=== PATIENT | female | born 1985 | race Caucasian/White ===

== ENCOUNTER 2018-11-05 23:26 | Emergency (ER) | payer MEDICAID, OTHER ==
[~2018-11-05] VITALS: Ht 160 cm; Wt 52.2 kg
--- OUTSIDE RECORDS SUMMARY | 2018-11-05 23:36 | XMS REPORT ---
Author Author MAEVE LOPEZ Organization [facility] Address [address] [place] [address] Care Team Providers Care Truck Service Manager Name Role Phone MAEVE LOPEZ Unavailable PROBLEMS Type Condition ICD9-CM Code [id number] Code Onset Dates Condition Status SNOMED Code Problem Anxiety F41.9 Active 21662579 Problem Panic disorder F41.0 Active 438617548 Problem Postoperative hypothyroidism E89.0 Active 54488485 Problem Migraine headache without aura G43.009 Active 78449828 ALLERGIES No Information ENCOUNTERS Encounter Location Date Diagnosis [facility] [address] [id number] [place] [address] Sep [facility] [address] [id number] [place] [address] Aug Anxiety F41.9 and Postoperative hypothyroidism E89.0 [facility] [address] [id number] [place] [address] Aug [facility] [address] [id number] [place] [address] Jul Anxiety F41.9 ; Postoperative hypothyroidism E89.0 and Back pain, lumbosacral M54.5 [facility] [address] [id number] [address] Jan, Postoperative hypothyroidism E89.0 [facility] [address] [facility] [id number] [place] [id number] Jan, Postoperative hypothyroidism E89.0 [facility] [place] [address] [id number] [id number] Dec, Postoperative hypothyroidism E89.0 [facility] [address] [facility] [id number][place] [address] Dec, Postoperative hypothyroidism E89.0 [facility] [address] [id number][place] [id number] Nov, Postoperative hypothyroidism E89.0 [facility] [place] [address] [id number] [place] [id number] Nov, Postoperative hypothyroidism E89.0 [facility] [place] [address] [id number] [place] [id number] Nov, Postoperative hypothyroidism E89.0 and Panic disorder F41.0 [facility] [place] [address] [id number] [place] [address] Sep, Postoperative hypothyroidism E89.0 [facility] [place] [address] [id number] [place] [id number] Aug, [facility] [id number], [place] [address] Jul, [facility] [id number][place] [id number] Jul, [facility] [place] [id number] [place] [address] Jun, [facility] [address] [id number][place] [address] May, [facility] [id number][place] [address] Apr, [facility] [address] [id number], [place] [id number] Apr, [facility] [place] [address] [id number] [place] [id number] Apr, Postoperative hypothyroidism E89.0 [facility] [place] [address] [id number] [place] [address] Apr, Panic disorder F41.0 [facility] [address] [id number], [place] [id number] Apr, Postoperative hypothyroidism E89.0 [facility] [place] [address] [id number] [place] [address] March, Well woman exam Z01.419 ; Vaginal itching L29.8 and Nipple discharge N64.52 [facility] [address] [facility] [id number] [place] [id number] Dec, [facility] [address] [facility] [id number] [place] [phone] Dec, Panic disorder F41.0 ; Postoperative hypothyroidism E89.0 ; Migraine headache without aura G43.009 and Encounter for initial prescription of contraceptive pills Z30.011 [facility] [address] [facility] [id number] [place] [phone] Nov, Panic disorder F41.0 ; Postoperative hypothyroidism E89.0 ; Migraine headache without aura G43.009 and Encounter for initial prescription of contraceptive pills Z30.011 IMMUNIZATIONS No Known Immunizations SOCIAL HISTORY Never Assessed REASON FOR VISIT letter for lab results PLAN OF CARE VITAL SIGNS MEDICATIONS Medication Instructions Dosage Frequency Start Date End Date Duration Status Levothyroxine Sodium 50 mcg Orally Once a day 1 tablet on an empty stomach in the morning 24h Sep, 30 day(s) Active RESULTS No Results PROCEDURES No Known procedures INSTRUCTIONS MEDICATIONS ADMINISTERED No Known Medications MEDICAL (GENERAL) HISTORY Type Description Date Medical History hyperthyroidism Medical History kidney stones Medical History anxiety Medical History migraine headaches Medical History ovarian cyst Surgical History tonsillectomy Surgical History section Surgical History thyroidectomy Hospitalization History Hospitalization for surgery only
--- OUTSIDE RECORDS SUMMARY | 2018-11-05 23:36 | XMS REPORT ---
Author Author MAEVE LOPEZ Organization [facility] Address [address] [place] [address] Care Team Providers Care Demolition Worker Name Role Phone MAEVE LOPEZ Unavailable PROBLEMS ALLERGIES No Known Allergies ENCOUNTERS IMMUNIZATIONS No Known Immunizations SOCIAL HISTORY No smoking Hx information available REASON FOR VISIT PLAN OF CARE VITAL SIGNS MEDICATIONS RESULTS No Results PROCEDURES INSTRUCTIONS MEDICATIONS ADMINISTERED No Known Medications MEDICAL (GENERAL) HISTORY
--- OUTSIDE RECORDS SUMMARY | 2018-11-05 23:36 | XMS REPORT ---
Author Author NANCY Barrientos Organization [facility] Address [address] [place] [address] Care Team Providers Care Plastics Design Engineer Name Role Phone NANCY Barrientos Unavailable PROBLEMS Type Condition ICD9-CM Code [id number] Code Onset Dates Condition Status SNOMED Code Problem Panic disorder F41.0 Active 604134521 Problem Postoperative hypothyroidism E89.0 Active 86255235 Problem Migraine headache without aura G43.009 Active 03231495 ALLERGIES No Information SOCIAL HISTORY Never Assessed PLAN OF CARE VITAL SIGNS MEDICATIONS Unknown Medications RESULTS Name Result Date Reference Range TSH 2016-12-16 TSH 0.106 0.450-4.500 PROCEDURES Procedure Date Ordered Result Body Site LAB NOT BILLED BY [facility] Dec 13, 2016 IMMUNIZATIONS No Known Immunizations MEDICAL (GENERAL) HISTORY Type Description Date Medical History hyperthyroidism Medical History kidney stones Medical History anxiety Medical History migraine headaches Medical History ovarian cyst Surgical History tonsillectomy Surgical History section Surgical History thyroidectomy Hospitalization History Hospitalization for surgery only
--- OUTSIDE RECORDS SUMMARY | 2018-11-05 23:36 | XMS REPORT ---
Author Author BRENNA NAVAS Organization [employer] Address Unknown Phone Unavailable Care Team Providers Care Outside Food Server Name Role Phone BRENNA NAVAS CP Unavailable Allergies No Known Allergies Problems Problem Type Condition Code Onset Dates Condition Status Problem Migraine headache without aura G43.009 Active Problem Panic disorder F41.0 Active Problem Postoperative hypothyroidism E89.0 Active Medications Medication Code System Code Instructions Start Date End Date Status Dosage HydrOXYzine HCl [facility] [address]-59 25 MG Orally once a day May 14, 2016 1 tablet as needed for panic attacks Effexor XR [facility] [address]-91 75 MG Orally Once a day May 14, 2016 1 capsule with food Results No Known Results Summary Purpose [employer] Submission
--- OUTSIDE RECORDS SUMMARY | 2018-11-05 23:36 | XMS REPORT ---
Author Author MAEVE LOPEZ Organization [facility] Address [address] [place] [address] Care Team Providers Care Software Developer Name Role Phone MAEVE LOPEZ Unavailable PROBLEMS Type Condition ICD9-CM Code TTX91-TL Code Onset Dates Condition Status SNOMED Code Problem Anxiety F41.9 Active 79951313 Problem Panic disorder F41.0 Active 959692367 Problem Postoperative hypothyroidism E89.0 Active 68554845 Problem Migraine headache without aura G43.009 Active 68465251 ALLERGIES No Known Allergies ENCOUNTERS Encounter Location Date Diagnosis [facility] [address] [id number] [place] [address] Aug Anxiety F41.9 and Postoperative hypothyroidism E89.0 [facility] [address] [id number] [place] [address] Aug [facility] [address] [id number] [place] [address] Jul Anxiety F41.9 ; Postoperative hypothyroidism E89.0 and Back pain, lumbosacral M54.5 [facility] [address] [facility] [id number] [place] [address] Jan, Postoperative hypothyroidism E89.[address] [facility] [address] [facility] [id number] [place] [address] Jan, Postoperative hypothyroidism E89.0 [facility] [place] [address] [facility] [id number][place] [id number] Dec, Postoperative hypothyroidism E89.[address] [facility] [address] [id number] [place] [address] Dec, Postoperative hypothyroidism E89.[address] [facility] [address] [id number] [place] [address] Nov, Postoperative hypothyroidism E89.0 [facility] [place] [address] [id number] [place] [address] Nov, Postoperative hypothyroidism E89.0 [facility] [place] [id number] [place] [id number] Nov, Postoperative hypothyroidism E89.0 and Panic disorder F41.0 [facility] [place] [id number] [place] [id number] Sep, Postoperative hypothyroidism E89.0 [facility] [place] [address] [id number] [place] [id number] Aug, [facility] [id number] [place] [address] Jul, [facility] [id number] [place] [id number] Jul, [facility] [place] [id number] [facility] [id number] Jun, [facility] [address] [id number] [place] [address] May, [facility] [id number] [place] [id number] Apr, [facility] [id number] [place] [address] Apr, [facility] [place] [id number] [place] [id number] Apr, Postoperative hypothyroidism E89.0 [facility] [place] [address] [id number] [facility] [address] Apr, Panic disorder F41.0 [facility] [address] [id number] [place] [address] Apr, Postoperative hypothyroidism E89.0 [facility] [place] [id number] [facility] [id number] March, Well woman exam Z01.419 ; Vaginal itching L29.8 and Nipple discharge N64.52 [facility] [id number] [place] [address] Dec, [facility] [place] [address] [facility] [id number] [place] [phone] Dec, Panic disorder F41.0 ; Postoperative hypothyroidism E89.0 ; Migraine headache without aura G43.009 and Encounter for initial prescription of contraceptive pills Z30.011 [facility] [place] [address] [facility] [address] [id number] [place] [address] Nov, Panic disorder F41.0 ; Postoperative hypothyroidism E89.0 ; Migraine headache without aura G43.009 and Encounter for initial prescription of contraceptive pills Z30.011 IMMUNIZATIONS No Known Immunizations SOCIAL HISTORY Never Assessed REASON FOR VISIT Anxiety-4 week follow up, med is not working and she is asking for xanax, wants to change to levothyroxine as it is hard to keep nature-throid in stock at pharmacy---[facility] PLAN OF CARE Activity Details Follow Up 4 Weeks Reason:Anxiety f/u VITAL SIGNS Height 63 in 2018-09-14 Weight 108.3 lbs 2018-09-14 Temperature 98.4 degrees Fahrenheit 2018-09-14 Heart Rate 104 bpm 2018-09-14 Respiratory Rate 18 2018-09-14 Oximetry 98 % 2018-09-14 BMI 19.18 kg/m2 2018-09-14 Blood pressure systolic 108 mmHg 2018-09-14 Blood pressure diastolic 64 mmHg 2018-09-14 MEDICATIONS Medication Instructions Dosage Frequency Start Date End Date Duration Status BusPIRone HCl 5 mg Orally Three times a day 1 tablet 8h Aug, 14 days Active Venlafaxine HCl 75 MG Orally Once a day 1 tablet with food 24h Aug, 30 day(s) Active RESULTS No Results PROCEDURES Procedure Date Ordered Result Body Site ASSAY THYROID STIM HORMONE Sep 14, 2018 COMPLETE CBC W/AUTO DIFF WBC Sep 14, 2018 COMPREHEN METABOLIC PANEL Sep 14, 2018 VENIPUNCT, ROUTINE* Sep 14, 2018 LIPID PANEL Sep 14, 2018 INSTRUCTIONS MEDICATIONS ADMINISTERED No Known Medications MEDICAL (GENERAL) HISTORY Type Description Date Medical History hyperthyroidism Medical History kidney stones Medical History anxiety Medical History migraine headaches Medical History ovarian cyst Surgical History tonsillectomy Surgical History section Surgical History thyroidectomy Hospitalization History Hospitalization for surgery only
--- OUTSIDE RECORDS SUMMARY | 2018-11-05 23:36 | XMS REPORT ---
Author Author [facility]AS [facility] [place] Address [address] [place] [address] Care Team Providers Care Fisher Mussel Name Role Phone ELOISE BRENNA Unavailable PROBLEMS Type Condition ICD9-CM Code [id number] Code Onset Dates Condition Status SNOMED Code Problem Postoperative hypothyroidism E89.0 Active 60643805 Problem Migraine headache without aura G43.009 Active 50483030 Problem Panic disorder F41.0 Active 093454309 ALLERGIES Unknown Allergies SOCIAL HISTORY No smoking Hx information available PLAN OF CARE VITAL SIGNS MEDICATIONS Unknown Medications RESULTS No Results PROCEDURES No Known procedures IMMUNIZATIONS No Known Immunizations
--- OUTSIDE RECORDS SUMMARY | 2018-11-05 23:36 | XMS REPORT ---
Author Author [facility]AS [facility] Address [address] [place] [address] Care Team Providers Care Cocoa Bean Roaster Name Role Phone ELOISE BRENNA Unavailable PROBLEMS Type Condition ICD9-CM Code WTC70-CW Code Onset Dates Condition Status SNOMED Code Problem Panic disorder F41.0 Active 027838221 Problem Postoperative hypothyroidism E89.0 Active 64539503 Problem Migraine headache without aura G43.009 Active 58264342 ALLERGIES Unknown Allergies SOCIAL HISTORY No smoking Hx information available PLAN OF CARE VITAL SIGNS MEDICATIONS Unknown Medications RESULTS No Results PROCEDURES No Known procedures IMMUNIZATIONS No Known Immunizations
--- OUTSIDE RECORDS SUMMARY | 2018-11-05 23:36 | XMS REPORT ---
Author Author BRENNA NAVAS Organization [employer] Address Unknown Phone Unavailable Care Team Providers Care Supervisor Inspecting Name Role Phone BRENNA NAVAS CP Unavailable Allergies No Known Allergies Problems Problem Type Condition Code Onset Dates Condition Status Problem Migraine headache without aura G43.009 Active Problem Panic disorder F41.0 Active Problem Postoperative hypothyroidism E89.0 Active Assessment Postoperative hypothyroidism E89.0 Active Medications No Known Medications Procedures Procedure Coding System Code Date VENIPUNCT, ROUTINE* CPT-4 83501 Sep 30, 2016 LAB NOT BILLED BY [facility] CPT-4 NOBLL Sep 30, 2016 Results Name Result Date Reference Range Unit Abnormality Flag ROUTINE VENIPUNCTURE Summary Purpose [employer] Submission
--- OUTSIDE RECORDS SUMMARY | 2018-11-05 23:36 | XMS REPORT ---
Author Author BRENNA NAVAS Organization [facility] Address [address] [place] [address] Care Team Providers Care Cement Sprayer Helper Name Role Phone BRENNA NAVAS Unavailable PROBLEMS Type Condition ICD9-CM Code [id number] Code Onset Dates Condition Status SNOMED Code Problem Panic disorder F41.0 Active 001357411 Problem Postoperative hypothyroidism E89.0 Active 66561104 Problem Migraine headache without aura G43.009 Active 49307612 ALLERGIES No Information SOCIAL HISTORY Never Assessed PLAN OF CARE VITAL SIGNS MEDICATIONS Unknown Medications RESULTS Name Result Date Reference Range TSH W/ FREE T4 2017-01-14 TSH 5.680 0.450-4.500 T4,Free(Direct) 0.93 0.82-1.77 PROCEDURES Procedure Date Ordered Result Body Site LAB NOT BILLED BY [facility] Jan 14, 2017 VENIPUNCT, ROUTINE* Jan 14, 2017 IMMUNIZATIONS No Known Immunizations MEDICAL (GENERAL) HISTORY Type Description Date Medical History hyperthyroidism Medical History kidney stones Medical History anxiety Medical History migraine headaches Medical History ovarian cyst Surgical History tonsillectomy Surgical History section Surgical History thyroidectomy Hospitalization History Hospitalization for surgery only
--- OUTSIDE RECORDS SUMMARY | 2018-11-05 23:36 | XMS REPORT ---
Author Goldy Newby [facility] Address [address] [place], [place] [address] Care Team Providers Care Cloud Engagement Partner Name Role Phone Goldy Delgado PCP Shira Mae PreferredProvider Allergies and Adverse Reactions Name Reaction Notes No known drug allergy Plan of Treatment Planned Activity Comments Planned Date Planned Time Plan/Goal Culture + susceptibility 11/04/2018 12:00 AM Medications Active Name Start Date Estimated Completion Date SIG Comments Bactrim DS 800-160 mg oral tablet take 1 tablet by oral route every 12 hours for 10 days levothyroxine 50 mcg oral tablet take 1 tablet (50 mcg) by oral route once daily tramadol 50 mg oral tablet 11/05/2018 take 1 tablet by oral route 2 times a day Problem List Not available. Vital Signs Date Time BP-Sys(mm[Hg] BP-Fang(mm[Hg]) HR(bpm) RR(rpm) Temp WT HT HC BMI BSA BMI Percentile O2 Sat(%) 11/04/2018 2:51:00 PM 110 mmHg 68 mmHg 106 bpm 20 rpm 99.5 F 115 lbs 64 in 19.7395 kg/m 1.5348 m 100 % Social History Name Description Comments Alcohol Never Tobacco Current every day smoker History of Procedures Not available. Results Summary Not available. History Of Immunizations Not available. History of Past Illness Name Date of Onset Comments Hyperthyroidism Goiter Abscess Nov 04 2018 4:09PM Abscess Nov 04 2018 2:53PM Cellulitis of left upper extremity Nov 04 2018 2:53PM Payers Insurance Name Company Name Plan Name Plan Number Policy Number Policy Group Number Start Date [facility] [id number] N/A [facility] [id number] N/A History of Encounters Visit Date Visit Type Provider 11/04/2018 Procedures Goldy Delgado MD 11/04/2018 Office visit Shira Mae AUTO RADIATOR SPECIALIST
--- OUTSIDE RECORDS SUMMARY | 2018-11-05 23:36 | XMS REPORT ---
Author Author BRENNA NAVAS Organization [employer] Address Unknown Phone Unavailable Care Team Providers Care Motor Vehicle Representative Name Role Phone BRENNA NAVAS CP Unavailable Allergies No Known Allergies Problems Problem Type Condition Code Onset Dates Condition Status Problem Migraine headache without aura G43.009 Active Problem Panic disorder F41.0 Active Problem Postoperative hypothyroidism E89.0 Active Medications No Known Medications Results No Known Results Summary Purpose [employer] Submission
--- OUTSIDE RECORDS SUMMARY | 2018-11-05 23:37 | XMS REPORT ---
Author Author NANCY Barrientos Organization [facility] Address [address] [place] [address] Care Team Providers Care Sr. Director Name Role Phone NANCY Barrientos Unavailable PROBLEMS Type Condition ICD9-CM Code SXM50-PP Code Onset Dates Condition Status SNOMED Code Problem Panic disorder F41.0 Active 329872360 Problem Postoperative hypothyroidism E89.0 Active 50037108 Problem Migraine headache without aura G43.009 Active 27080276 ALLERGIES No Information SOCIAL HISTORY Never Assessed PLAN OF CARE VITAL SIGNS MEDICATIONS Medication Instructions Dosage Frequency Start Date End Date Duration Status Levothyroxine Sodium 75 mcg Orally Once a day 1 tablet on an empty stomach in the morning 24h Jan, 90 days Active RESULTS No Results PROCEDURES No Known procedures IMMUNIZATIONS No Known Immunizations MEDICAL (GENERAL) HISTORY Type Description Date Medical History hyperthyroidism Medical History kidney stones Medical History anxiety Medical History migraine headaches Medical History ovarian cyst Surgical History tonsillectomy Surgical History section Surgical History thyroidectomy Hospitalization History Hospitalization for surgery only
--- OUTSIDE RECORDS SUMMARY | 2018-11-05 23:37 | XMS REPORT | Continuity of Care Document ---
Author Author [facility] Organization [facility] Address [facility] [address] [place] [id number] Phone Unavailable Support Name Relationship Address Phone TRESSA PARRISH MD Caregiver [address] [place] [phone] Unavailable PENDONELL العراقي Next Of Kin [address] [place] [address] Insurance Providers Guarantor Serenity Armando Address [address] [place] [address] Email N Payer [facility] Policy Number [id number] Subscriber's Name Serenity Armando Relationship 18 Self / Same As Patient Advance Directives Directive Response Recorded Date/Time Advance Directives No 09/28/15 5:57pm Living Will No 09/28/15 5:57pm Health Care Proxy No 09/14/17 12:39pm Power of Hr Representative for Health Care No 09/28/15 5:57pm Organ, Tissue, or Eye Donor Yes 09/28/15 5:56pm Do you have a signed organ donor card? No 09/28/15 5:56pm Chief Complaint and Reason for Visit Chief Complaint BRONCHITIS Reason for Visit Acute bronchitis Problems Medical Problem Onset Date Status Abdominal pain Unknown Acute Nausea and vomiting Unknown Acute Past Problems Medical Problem Onset Date Status Acute bronchitis Unknown Acute Medications Current Home Medications Medication Dose Units Route Directions Days Qty Instructions Start Date Cetirizine Hcl (Zyrtec*) 10 Mg Tablet 10 Mg ORAL Daily 30 Tablet Levothyroxine Sodium (Synthroid 125 Mcg Tab*) 125 Mcg Tablet 125 Mcg ORAL Daily Prednisone (Prednisone 20 Mg Tab*) 20 Mg Tablet 40 Mg ORAL Daily 10 Tablet 09/14/17 Past Home Medications Medication Directions Ordered Status Acetaminophen/Hydrocodone Bitart ([place] 5-325 Tab*) 1 Tab Tablet, 1 Each Oral Every 6 Hrs As Needed For Pain 09/28/15 Discontinued Promethazine Hcl (Phenergan*) 25 Mg Tablet, 25 Mg Oral Every 6 Hours as needed for Nausea/Vomiting 09/28/15 Discontinued Social History Social History Problem Response Recorded Date/Time Onset Date Status Smoking Status Current every day smoker 09/14/2017 12:33pm Not Applicable Not Applicable Alcohol Use none 09/14/2017 12:33pm Not Applicable Not Applicable Drug Use none 09/14/2017 12:33pm Not Applicable Not Applicable Smoking Status Start Date Stop Date Current every day smoker Hospital Discharge Instructions No hospital discharge instruction information available. Plan of Care Discharge Date 09/14/17 1:55pm Condition at Discharge Stable Instructions/Education Provided Acute Bronchitis (ED) Prescriptions See Medication Section Additional Instructions/Education Followup with primary care physician for continued symptoms Functional Status Query Response Date Recorded Patient Behavior Appropriate September 14, 2017 12:02pm Allergies, Adverse Reactions, Alerts No known allergies. Immunizations Query Response on File Recorded Date/Time Hx Diphtheria, Pertussis, Tetanus Vaccination Unknown 09/14/17 12:02pm Hx Influenza Vaccination No 09/14/17 12:02pm Hx Pneumococcal Vaccination No 09/14/17 12:02pm Vital Signs Acute Vital Signs Vital Response Date/Time Temperature (Fahrenheit) 98.1 degrees F (97.6 - 99.5) 09/14/2017 1:25pm Temperature Source Temporal Artery 09/14/2017 1:25pm Pulse Rate (adult) 92 bpm (60 - 90) 09/14/2017 1:25pm Respiratory Rate 16 bpm (12 - 24) 09/14/2017 1:25pm Blood Pressure 100/72 mm Hg 09/14/2017 1:25pm O2 Sat by Pulse Oximetry 100 % (90 - 100) 09/14/2017 1:25pm Oxygen Delivery Method Room Air 09/14/2017 1:25pm Height 5 ft 4 in 09/14/2017 12:02pm Weight 110.23 lb 09/14/2017 12:02pm Body Mass Index 18.0 kg/m^2 09/14/2017 12:02pm Results No relevant diagnostic test, laboratory data and/or discharge summary information available. Procedures Procedure Status Date Provider(s) X-ray of chest, PA and lateral views Completed 09/14/17 TRESSA PARRISH MD Encounters Encounter Location Arrival/Admit Date Discharge/Depart Date Attending Provider Departed Emergency Room [place] 09/14/17 11:53am 09/14/17 1:55pm TRESSA PARRISH MD Recent Diagnosis
--- OUTSIDE RECORDS SUMMARY | 2018-11-05 23:37 | XMS REPORT ---
Author Author NANCY Barrientos Organization [facility] Address [address] [place] [address] Care Team Providers Care Poker Prop Player Name Role Phone NANCY Barrientos Unavailable PROBLEMS Type Condition ICD9-CM Code [id number] Code Onset Dates Condition Status SNOMED Code Problem Panic disorder F41.0 Active 640441738 Problem Postoperative hypothyroidism E89.0 Active 27673137 Problem Migraine headache without aura G43.009 Active 99984654 ALLERGIES No Information SOCIAL HISTORY Never Assessed PLAN OF CARE VITAL SIGNS MEDICATIONS Medication Instructions Dosage Frequency Start Date End Date Duration Status Levothyroxine Sodium 75 mcg Orally Once a day 1 tablet on an empty stomach in the morning 24h Jan, 30 day(s) Active RESULTS No Results PROCEDURES No Known procedures IMMUNIZATIONS No Known Immunizations MEDICAL (GENERAL) HISTORY Type Description Date Medical History hyperthyroidism Medical History kidney stones Medical History anxiety Medical History migraine headaches Medical History ovarian cyst Surgical History tonsillectomy Surgical History section Surgical History thyroidectomy Hospitalization History Hospitalization for surgery only
--- OUTSIDE RECORDS SUMMARY | 2018-11-05 23:37 | XMS REPORT ---
Author Author BRENNA NAVAS Organization [employer] Address Unknown Phone Unavailable Care Team Providers Care Screw Machine Operator Name Role Phone BRENNA NAVAS CP Unavailable Allergies No Known Allergies Problems Problem Type Condition Code Onset Dates Condition Status Problem Migraine headache without aura G43.009 Active Problem Panic disorder F41.0 Active Problem Postoperative hypothyroidism E89.0 Active Medications Medication Code System Code Instructions Start Date End Date Status Dosage Levothyroxine Sodium [facility] [id number] 75 MCG Orally Once a day May 20, 2016 1 tablet Results No Known Results Summary Purpose [employer] Submission
--- OUTSIDE RECORDS SUMMARY | 2018-11-05 23:37 | XMS REPORT ---
Author Author NANCY MUNOZ Organization [facility] Address [address] [place] [address] Care Team Providers Care Observer Electrical Prospecting Name Role Phone NANCY MUNOZ Unavailable PROBLEMS Type Condition ICD9-CM Code DSR29-[id number] Code Onset Dates Condition Status SNOMED Code Problem Panic disorder F41.0 Active 955950420 Problem Postoperative hypothyroidism E89.0 Active 77118094 Problem Migraine headache without aura G43.009 Active 61536302 ALLERGIES Substance Reaction Event Type Date Status N.K.D.A. Unknown Non Drug Allergy Nov, Unknown SOCIAL HISTORY No smoking Hx information available PLAN OF CARE Activity Details Follow Up 3 Months- with Mirella. Reason: VITAL SIGNS Height 63 in 2016-12-13 Weight 112 lbs 2016-12-13 Temperature 98.3 degrees Fahrenheit 2016-12-13 Respiratory Rate 18 2016-12-13 BMI 19.84 kg/m2 2016-12-13 Blood pressure systolic 102 mmHg 2016-12-13 Blood pressure diastolic 62 mmHg 2016-12-13 MEDICATIONS Medication Instructions Dosage Frequency Start Date End Date Duration Status HydrOXYzine HCl 25 MG Orally once a day 1 tablet as needed for panic attacks 24h Apr, 30 days Active Effexor XR 75 MG Orally Once a day 1 capsule with food 24h Apr, 30 days Active Levothyroxine Sodium 75 MCG Orally Once a day 1 tablet 24h Apr, 30 day(s) Active Levothyroxine Sodium 50 MCG Orally Once a day 1 tablet on an empty stomach in the morning 24h Nov, 30 day(s) Active RESULTS Name Result Date Reference Range TSH 2016-12-16 TSH PROCEDURES Procedure Date Ordered Related Diagnosis Body Site LAB NOT BILLED BY [facility] Dec 13, 2016 Office Visit, Est Pt., Level 3 Dec 13, 2016 VENIPUNCT, ROUTINE* Dec 13, 2016 IMMUNIZATIONS No Known Immunizations
--- OUTSIDE RECORDS SUMMARY | 2018-11-05 23:37 | XMS REPORT ---
Author Author NANCY MUNOZ [facility] Address [address] [place] [address] Care Team Providers Care Room Service Waiter Name Role Phone NANCY MUNOZ Unavailable PROBLEMS Type Condition ICD9-CM Code [id number] Code Onset Dates Condition Status SNOMED Code Problem Panic disorder F41.0 Active 271342587 Problem Postoperative hypothyroidism E89.0 Active 77278554 Problem Migraine headache without aura G43.009 Active 86667150 ALLERGIES Unknown Allergies SOCIAL HISTORY No smoking Hx information available PLAN OF CARE VITAL SIGNS MEDICATIONS Unknown Medications RESULTS No Results PROCEDURES No Known procedures IMMUNIZATIONS No Known Immunizations
--- OUTSIDE RECORDS SUMMARY | 2018-11-05 23:37 | XMS REPORT | Continuity of Care Document ---
Author Author [facility] Organization [facility] Address [address] [place] [address] Phone Unavailable Care Team Providers Care Inside Sales Assistant Name Role Phone RON MANN MD PCP Insurance Providers Guarantor Serenity Armando Address [address] [place] [phone] Email [email or web address] [facility] [employer] Policy Number [id number] Subscriber's Name Serenity Armando Relationship 18 Self / Same As Patient Advance Directives Directive Response Recorded Date/Time Advance Directives No 12/20/17 6:03pm Advance Directive on File No 12/20/17 6:05pm Durable POA for HC No 12/20/17 6:05pm Power of Email Campaign Manager No 12/20/17 6:05pm Organ Donor No 12/20/17 6:05pm Living Will No 12/20/17 6:05pm Chief Complaint and Reason for Visit Chief Complaint Abdominal Pain Reason for Visit Acute cystitis with hematuria Calculus of kidney Constipation Problems Active ProblemsNo active problem information available. Past Problems Medical Problem Onset Date Status Acute cystitis with hematuria Unknown Acute Calculus of kidney Unknown Acute Constipation Unknown Acute Medications Current Home Medications Medication Dose Units Route Directions Days Qty Instructions Start Date Ciprofloxacin Hcl (Cipro) 500 Mg Tablet 500 Mg Oral Twice A Day for Infection Social History Social History Problem Response Recorded Date/Time Onset Date Status Smoking Status Current every day smoker 12/20/2017 6:36pm Not Applicable Not Applicable Smoked in the last 12 months? Yes 12/20/2017 6:36pm Not Applicable Not Applicable Do you dip or chew tobacco? No 12/20/2017 6:36pm Not Applicable Not Applicable Approx how many cigs per day? 20 12/20/2017 6:36pm Not Applicable Not Applicable Level of Dependence High 12/20/2017 6:36pm Not Applicable Not Applicable Former smoker, last day smoked? CURRENT 12/20/2017 6:36pm Not Applicable Not Applicable Smoking Status Start Date Stop Date Current every day smoker Hospital Discharge Instructions No hospital discharge instruction information available. Plan of Care Discharge Date 12/20/17 7:49pm Disposition D/C HOME Condition at Discharge Stable Instructions/Education Provided How to Stop Smoking (ED) Forms Provided ER Discharge Phone Call Check Prescriptions See Medication Section Referrals RON MANN MD Address: [address] [facility] [address] [place] [address] Additional Instructions/Education I you go 2 days without a bowel movement, take a tablespoon of Milk of Magnesia every 12 hours until you have one. Finish the Cipro for your bladder infection. You still need to see the urologist about the stones in your kidneys. They are very small, but could still caus pain later if they get out of the kidney. Care Plan and Goals Problem: General Exam Goal:Continued Wellness Instructions: Follow up with Primary Care Provider & Follow Discharge Instructions given in ER. Reference Links Reference Text What is constipation? Constipation is a common problem that makes it hard to have bowel movements. Your bowel movements might be: ?Too hard ?Too small ?Hard to get out ?Happening fewer than 3 times a week What causes constipation? Constipation can be caused by: ?Side effects of some medicines ?Poor diet ?Diseases of the digestive system (figure 1) What other symptoms should I watch for? These symptoms could signal a more serious problem: ?Blood in the toilet or on the toilet paper after having a bowel movement ?Fever ?Weight loss ?Feeling weak Is there anything I can do on my own to get rid of constipation? Yes. Try these steps: ?Eat foods that have a lot of fiber. Good choices are fruits, vegetables, prune juice, and cereal (table 1). ?Drink plenty of water and other fluids. ?When you feel the need to go to the bathroom, go to the bathroom. Don't hold it. ?Take laxatives. These are medicines that help make bowel movements easier to get out. Some are pills that you swallow. Others go into the rectum. These are called "suppositories." Should I see a doctor or nurse? See your doctor or nurse if: ?Your symptoms are new or not normal for you ?You do not have a bowel movement for a few days ?The problem comes and goes, but lasts for longer than 3 weeks ?You are in a lot of pain ?You have other symptoms that also worry you (for example, bleeding, weakness, weight loss, or fever) ?Other people in your family have had colorectal cancer or inflammatory bowel disease Are there tests I should have? Your doctor or nurse will decide which tests you should have based on your age, other symptoms, and individual situation. There are lots of tests, but you might not need any. Here are the most common tests doctors use to find the cause of constipation: ?Rectal exam Your doctor will look at the outside of your anus. He or she will also use a finger to feel inside the opening. ?Sigmoidoscopy or colonoscopy For these tests, the doctor puts a thin tube into your anus. Then, he or she advances the tube into your large intestine. The large intestine is also called the colon. The tube has a camera attached to it, so the doctor can look inside your intestines. During these tests, the doctor can also take samples of tissue to look at under a microscope (figure 2). ?X-rays or MRI These create images of the inside of your body. ?Manometry studies Manometry allows the doctor to measure the pressure inside the rectum at various points. It can help the doctor find out if the muscles that control bowel movements are working right. The test also shows whether the person's rectum can feel normally. How is constipation treated? That depends on what is causing your constipation. First, your doctor will want you to try eating more fiber and drinking more water. If that doesn't help, your doctor might suggest: ?Medicines that you swallow or put in your rectum ?Changing the medicines you are taking for other conditions ?A treatment called an "enema." For this treatment, a doctor or nurse will squirt water into your rectum. He or she might also use a thin tool to help break up bowel movements that are still inside you. ?Biofeedback. This is a technique that teaches you to relax your muscles so you can let go and push bowel movements out. Can constipation be prevented? You can reduce your chances of getting constipation again by: ?Eating a diet that is full of fiber (table 1) ?Drinking water and other fluids during the day ?Going to the bathroom at regular times every day Functional Status Query Response Date Recorded Activities of Daily Living Performs w/o Assistance December 20, 2017 6:05pm Cognitive Function Intact December 20, 2017 6:05pm Allergies, Adverse Reactions, Alerts No known allergies. Immunizations Query Response on File Recorded Date/Time Hx Influenza Vaccination No 12/20/17 6:05pm Hx Pneumococcal Vaccination No 12/20/17 6:05pm Hx Tetanus, Diphtheria Vaccination Yes 12/20/17 6:05pm Vital Signs Acute Vital Signs Vital Response Date/Time Temperature (Fahrenheit) 96.3 degrees F (97.6 - 99.5) 12/20/2017 7:49pm Temperature (Calculated Celsius) 35.71954 degrees C (36.4 - 37.5) 12/20/2017 7:49pm Temperature Source Temporal Artery Scan 12/20/2017 7:49pm Pulse Pulse Ox Pulse Rate (adult) 74 beats per minute (60 - 90) 12/20/2017 7:49pm Pulse Location Modifier Left 12/20/2017 7:49pm Oxygen Saturation Respiratory Rate 18 breaths per minute (12 - 24) 12/20/2017 7:49pm O2 Sat by Pulse Oximetry 98 % (90 - 100) 12/20/2017 7:49pm Blood Pressure 102/66 mm Hg 12/20/2017 7:49pm Blood Pressure Mean 78 mm Hg 12/20/2017 7:49pm Height 5 ft 4 in 12/20/2017 6:05pm Weight 108 lb 12/20/2017 6:05pm Body Mass Index 18.5 kg/m^2 12/20/2017 6:05pm Results Laboratory Results Test Name Result Units Flags Reference Collection Date/Time Result Date/ Time Comments White Blood Count 8.5 x10^3/uL 4.0-11.0 12/20/2017 6:27pm 12/20/2017 6: 31pm Red Blood Count 4.26 10^6/uL 3.80-5.80 12/20/2017 6:27pm 12/20/2017 6: 31pm Hemoglobin 13.6 g/dL 11.5-16.5 12/20/2017 6:12/20/2017 6:31pm Hematocrit 39.6 % 37.0-47.0 12/20/2017 6:12/20/2017 6:31pm Mean Corpuscular Volume 93 fl 76-96 12/20/2017 6:12/20/2017 6: 31pm Mean Corpuscular Hemoglobin 31.9 pg 27.0-32.0 12/20/2017 6:2017 6:31pm Mean Corpuscular Hemoglobin Concent 34.3 g/dl 31.0-35.0 12/20/2017 6: 12/20/2017 6:31pm Red Cell Distribution Width 12.2 % 11.0-16.0 12/20/2017 6:2017 6:31pm Platelet Count 231 10^3/uL 150-500 12/20/2017 6:12/20/2017 6:31pm Mean Platelet Volume 9.8 fl 6.0-10.0 12/20/2017 6:12/20/2017 6: 31pm Neutrophils (%) (Auto) 66.9 % 45.0-70.0 12/20/2017 6:12/20/2017 6: 31pm Lymphocytes (%) (Auto) 26.2 % 20.0-40.0 12/20/2017 6:12/20/2017 6: 31pm Monocytes (%) (Auto) 5.8 % 3.0-10.0 12/20/2017 6:12/20/2017 6: 31pm Eosinophils (%) (Auto) 0.9 % L 1.0-5.0 12/20/2017 6:12/20/2017 6: 31pm Basophils (%) (Auto) 0.2 % 0.0-0.5 12/20/2017 6:12/20/2017 6:31pm Neutrophils # (Auto) 5.68 x10^3/uL 2.00-7.50 12/20/2017 6:2017 6:31pm Lymphocytes # (Auto) 2.23 x10^3/uL 1.50-4.00 12/20/2017 6:27pm 2017 6:31pm Monocytes # (Auto) 0.49 x10^3/uL 0.20-0.80 12/20/2017 6:27pm 2017 6:31pm Eosinophils # (Auto) 0.08 x10^3/uL 0.04-0.40 12/20/2017 6:27pm 2017 6:31pm Basophils # (Auto) 0.02 x10^3/uL 0.02-0.10 12/20/2017 6:27pm 2017 6:31pm Volume Urine Centrifuged 12 ml 12/20/2017 6:11pm 12/20/2017 6:46pm Test based ON 12 ml volume. Urine Color ORANGE A STRAW 12/20/2017 6:11pm 12/20/2017 6:46pm Urine Clarity CLOUDY A CLEAR 12/20/2017 6:11pm 12/20/2017 6:46pm Urine Specific [employer] 1.020 1.010-1.020 12/20/2017 6:11pm 2017 6:46pm Urine pH 7.0 A 5.0-6.0 12/20/2017 6:11pm 12/20/2017 6:46pm Urine Leukocyte Esterase SMALL NEGATIVE 12/20/2017 6:11pm 12/20/2017 6:46pm Urine Nitrite POSITIVE A NEGATIVE 12/20/2017 6:11pm 12/20/2017 6:46pm Urine Protein TRACE A NEGATIVE 12/20/2017 6:11pm 12/20/2017 6:46pm Urine Glucose (UA) 100 NEGATIVE 12/20/2017 6:11pm 12/20/2017 6:46pm Urine Ketones TRACE A NEGATIVE 12/20/2017 6:11pm 12/20/2017 6:46pm Urine Urobilinogen 1.0 0.2-1.0 12/20/2017 6:11pm 12/20/2017 6:46pm Urine Bilirubin NEGATIVE NEGATIVE 12/20/2017 6:11pm 12/20/2017 6: 46pm Urine Occult Blood LARGE NEGATIVE 12/20/2017 6:11pm 12/20/2017 6: 46pm Urine WBC 15-20 #/HPF OCCASIONAL 12/20/2017 6:11pm 12/20/2017 6:46pm Urine RBC FEW #/HPF OCCASIONAL 12/20/2017 6:11pm 12/20/2017 6:46pm Urine Epithelial Cells 10-12 #/HPF OCCASIONAL 12/20/2017 6:11pm 2017 6:46pm Urine Other Casts NONE #/LPF NEGATIVE 12/20/2017 6:pm 12/20/2017 6: 46pm Urine Bacteria OCC NONE 12/20/2017 6:12/20/2017 6:46pm OCC YEAST Urine Other Crystals NONE NONE 12/20/2017 6:12/20/2017 6:46pm Urine Mucus NONE NONE 12/20/2017 6:12/20/2017 6:46pm Urine Culture Indicated NO NO 12/20/2017 6:12/20/2017 6:46pm Sodium Level 140 mmol/L 137-145 12/20/2017 6:12/20/2017 6:47pm Potassium Level 3.6 mmol/L 3.5-5.1 12/20/2017 6:12/20/2017 6:47pm Chloride Level 101 mmol/L 98-107 12/20/2017 6:12/20/2017 6:47pm Carbon Dioxide Level 28.9 mmol/L -12/20/2017 6:12/20/2017 6: 47pm Anion Gap 13.7 mEq/L 8-12/20/2017 6:12/20/2017 6:47pm Blood Urea Nitrogen 15 mg/dL 7-12/20/2017 6:12/20/2017 6:47pm Creatinine 0.81 mg/dl 0.52-1.04 12/20/2017 6:12/20/2017 6:47pm Est Glomerular Filtrat Rate mL/min 82.47 12/20/2017 6:2017 6:47pm GFR NORMALS: Stage I: GFR >90 Stage II GFR 60-89 Stage III GFR 30-60 Stage IV: GFR 15-29 Stage V: GFR <15 BUN/Creatinine Ratio 18.51 12/20/2017 6:pm 12/20/2017 6:47pm Glucose Level 124 mg/dL H 74-106 12/20/2017 6:12/20/2017 6:47pm Calculated Osmolality 291.3 mosm/kg 273-304 12/20/2017 6:27pm 2017 6:47pm Calcium Level 9.2 mg/dL 8.4-10.2 12/20/2017 6:27pm 12/20/2017 6:47pm Total Bilirubin 0.6 mg/dL 0.2-1.3 12/20/2017 6:27pm 12/20/2017 6:47pm Aspartate Amino Transf (AST/SGOT) 15 U/L 14-36 12/20/2017 6:27pm 2017 6:47pm Alanine Aminotransferase (ALT/SGPT) 21 U/L 9-52 12/20/2017 6:27pm 12/20 6:47pm Alkaline Phosphatase 68 U/L 38-126 12/20/2017 6:27pm 12/20/2017 6:47pm Total Protein 7.0 g/dL 6.4-8.4 12/20/2017 6:27pm 12/20/2017 6:47pm Albumin 4.0 g/dL 3.4-5.5 12/20/2017 6:27pm 12/20/2017 6:47pm Globulin 3.0 2.3-3.5 12/20/2017 6:27pm 12/20/2017 6:47pm Albumin/Globulin Ratio 1.333 12/20/2017 6:27pm 12/20/2017 6:47pm Lipase 105 U/L 23-300 12/20/2017 6:27pm 12/20/2017 6:47pm Procedures Procedure Status Date Provider(s) Computed tomography of abdomen and pelvis Completed 12/20/17 RON MANN MD Encounters Encounter Location Arrival/Admit Date Discharge/Depart Date Attending Provider Departed Emergency Room [facility] 12/20/17 5:40pm 12/20/17 7: 49pm RON MANN MD Recent Diagnosis
--- NOTE | 2018-11-06 01:38 | ED Integumentary General ---
General Chief Complaint: Skin/Wound Problems Stated Complaint: LEFT THUMB INFECTION Nursing Triage Note: PT AMB TO ROOM #6 W/O DIFFICULTY WITH S/O @ SIDE ALSO IN ROOM PATIENT. PT REPORTS 11/05/18 SHE WAS SEEN [facility] WHERE DR. FINCH PREFORMED A DEBRIDEMENT TO LT SUPERIOR THUMB. PT REPORTS SHE DID NOT CHANGE THE BANDAGE APPLIED AFTER THE PROCEDURE AND IS NOW STUCK TO WOUND BED. PT STATES, "THEY TOLD ME I HAD MRSA IN THE WOUND." Source: patient Exam Limitations: no limitations History of Present Illness Date Seen by Provider: Nov 06, 2018 Time Seen by Provider: 01:15 Initial Comments Patient presents to ER by private conveyance with her significant other who had an abscess lanced earlier today was having a lot of pain. She also developed a paronychia they got infected and resulted in her losing her finger now having to see wound care in [place]. She decided she should be checked out at the same time. She is having some significant pain but she says the redness and swelling is gotten better. She's been packing the wound but she was told she is not changing and often enough and she said there is she's not changing it because she cannot get the material out because it grosses her out despite soaking it for several hours and water. No fevers chills nausea vomiting abdominal pain diarrhea constipation. Allergies and Home Medications Allergies Coded Allergies: No Known Drug Allergies (Unverified , 11/06/18) Patient Home Medication List Home Medication List Reviewed: Yes Review of Systems Review of Systems Constitutional: No chills, No diaphoresis EENTM: No ear discharge, No ear pain Respiratory: No cough, No short of breath Cardiovascular: No chest pain, No edema Gastrointestinal: No abdominal pain, No constipation, No diarrhea Genitourinary: No discharge, No dysuria Musculoskeletal: No back pain, No joint pain Past Cmfwoks-Lgxcmk-Cgncni Hx Patient Social History Alcohol Use: Denies Use Recreational Drug Use: No Smoking Status: Never a Smoker Recent Foreign Travel: No Contact w/Someone Who Travel: No Recent Infectious Disease Expo: No Physical Exam Vital Signs Vital Signs - First Documented 11/05/18 23:40 Temp 98.2 Pulse 85 Resp 18 B/P (MAP) 100/78 (85) Pulse Ox 100 O2 Delivery Room Air Capillary Refill : Less Than 3 Seconds General Appearance: WD/WN, no apparent distress HEENT: PERRL/EOMI, normal ENT inspection, pharynx normal Cardiovascular: normal peripheral pulses, regular rate, rhythm Respiratory: no respiratory distress, no accessory muscle use Gastrointestinal: normal bowel sounds, non tender, soft Neurologic/Psychiatric: alert, normal mood/affect, oriented x 3 Skin: other (thumb on left hand has a nail removed and some mild erythema swelling tenderness to palpation. Dried iodoform stuck to the wound bed.) Procedures/Interventions Progress The left thumb was soaked in chlorhexidine soap water to loosen the dressing and then the iodoform was removed. We used 2 cc each side of the thumb to do a digital block for a total of 4 cc of 1% lidocaine without epinephrine. Then repacked the wound gently with some quarter inch packing tape and put a clean dressing on it. Patient tolerated procedure okay. Progress/Results/Core Measures Results/Orders My Orders Orders - ANNABEL BARBER Ketorolac Injection (Toradol Injection) (11/06/18 01:45) Medications Given in ED Current Medications Medications Dose Ordered Sig/Robert Route Start Time Stop Time Status Last Admin Dose Admin Ketorolac Tromethamine 30 mg ONCE ONCE IM 11/06/18 01:45 11/06/18 01:46 DC 11/06/18 02:03 30 MG Vital Signs/I&O 11/05/18 23:40 Temp 98.2 Pulse 85 Resp 18 B/P (MAP) 100/78 (85) Pulse Ox 100 O2 Delivery Room Air Blood Pressure Mean: 85 Progress Progress Note : Time: 01:37 Progress Note Soak the hand and exiting soap water and then we'll try and remove the iodoform. Ketorolac 30 mg IM. Original wound could've been a paronychia versus herpetic jed etc. Departure Impression Primary Impression: Encounter for dressing of wound Disposition: 01 HOME, SELF-CARE Condition: Improved Departure-Patient Inst. Decision time for Depature: 02:59 Referrals: NO,LOCAL PHYSICIAN (PCP/Family) Primary Care Physician Patient Instructions: Wound Care (DC) Add. Discharge Instructions: Soak the wound and some warm soap water for a few minutes daily and then remove the dressing and packing. Lay some packing or gauze across the wound bed and redress it daily or as it becomes soiled. Continue taking the antibiotics as prescribed. Follow up with wound care. All discharge instructions reviewed with patient and/or family. Voiced understanding. ANNABEL BARBER Nov 06, 2018 01:38
[2018-11-06] MEDS ORDERED: KETOROLAC 30 MG/ML VIAL IM ONE (01:45)
[2018-11-06 03:06] VITALS: BP 100/78
== END 2018-11-06 03:07 | disposition home or self-care (01) ==
LOC: ER 23:31
DX: L02.512 Cutaneous abscess of left hand (principal)
CPT/HCPCS: 96372

== ENCOUNTER 2018-12-04 17:25 | Emergency (ER) | payer MEDICAID ==
[~2018-12-04] VITALS: Ht 160 cm; Wt 52.2 kg
--- OUTSIDE RECORDS SUMMARY | 2018-12-04 17:29 | XMS REPORT ---
Author Author Goldy Delgado [facility] Address [address] [place], [place] [id number] Care Team Providers Care Food Service Representative Name Role Phone Goldy Delgado PCP Shira Mae PreferredProvider Allergies and Adverse Reactions Name Reaction Notes No known drug allergy Plan of Treatment Not available. Medications Active Name Start Date Estimated Completion [...] Current every day smoker History of Procedures Date Ordered Description Order Status 11/04/2018 12:00 AM MICROBIOLOGY PROCEDURE Returned Results Summary Not available. History Of Immunizations Not available. History of Past Illness Name Date of Onset Comments Hyperthyroidism Goiter MRSA (methicillin resistant staph aureus) culture positive Abscess Nov 04 2018 2:53PM Cellulitis of left upper extremity Nov 04 2018 2:53PM Abscess Of Hand Nov 04 2018 4:09PM Felon Nov 04 2018 4:09PM Payers Insurance Name Company Name Plan Name Plan Number Policy Number Policy Group Number Start Date [facility] [id number] N/A [facility] [id number] N/A History of Encounters Visit Date Visit Type Provider 11/04/2018 Procedures Goldy Delgado MD 11/04/2018 Office visit Shira Mae APRN
--- OUTSIDE RECORDS SUMMARY | 2018-12-04 17:30 | XMS REPORT | Continuity of Care Document ---
Author Author [facility] Address Unknown Phone Unavailable Allergies There is no data. Medications There is no data. Problems There is no data. Procedures There is no data. Results There is no data. Encounters ACCT No. Visit Date/Time Discharge Status Pt. Type Provider Facility Loc./Unit Complaint [id number] 11/04/2018 16:08:36 11/04/2018 23:59:59 [facility] Outpatient Goldy Delgado [id number] 11/04/2018 15:49:39 11/04/2018 23:59:59 [facility] Outpatient Shira Mae
[2018-12-04] MEDS ORDERED: NS IV 1000 ML 1,000 ML IV SCH (17:44)
[2018-12-04] MEDS ORDERED: KETOROLAC 30 MG/ML VIAL IVP STA (17:44)
[2018-12-04] MEDS ORDERED: ONDANSETRON 4 MG/2 ML (SDV) Z0FRAN IVP ONE (17:45)
[2018-12-04 17:53] LABS: BASOPHILS % (AUTO) 0 % (0-10); EOSINOPHILS # (AUTO) 0.1 10^3/uL (0.0-0.3); EOSINOPHILS % (AUTO) 1 % (0-10); HEMATOCRIT 40 % (35-52); HEMOGLOBIN 13.6 G/DL (11.5-16.0); LYMPHOCYTES # (AUTO) 1.5 X 10^3 (1.0-4.0); LYMPHOCYTES % (AUTO) 16 % (12-44); MEAN CORPUSCULAR HEMOGLOBIN 31 PG (25-34); MEAN CORPUSCULAR HGB CONC 34 G/DL (32-36); MEAN CORPUSCULAR VOLUME 92 FL (80-99); MEAN PLATELET VOLUME 9.7 FL (7.4-10.4); MONOCYTES # (AUTO) 0.8 X 10^3 (0.0-1.0); MONOCYTES % (AUTO) 8 % (0-12); NEUTROPHILS # (AUTO) 7.1 X 10^3 (1.8-7.8); NEUTROPHILS % (AUTO) 76 % (42-75); PLATELET COUNT 235 10^3/uL (130-400); RED BLOOD COUNT 4.35 10^6/uL (4.35-5.85); RED CELL DISTRIBUTION WIDTH 12.8 % (10.0-14.5); WHITE BLOOD COUNT 9.4 10^3/uL (4.3-11.0)
[2018-12-04 17:54] LABS: BILIRUBIN,URINE NEGATIVE (NEGATIVE); CLARITY,URINE CLEAR; COLOR,URINE YELLOW; GLUCOSE, URINE (UA) NEGATIVE (NEGATIVE); KETONES,URINE NEGATIVE (NEGATIVE); LEUKOCYTE ESTERASE ,URINE 1+ (NEGATIVE); NITRITE,URINE NEGATIVE (NEGATIVE); PH,URINE 8 (5-9); PROTEIN,URINE 1+ (NEGATIVE); UROBILINOGEN,URINE NORMAL (NORMAL)
[2018-12-04 18:01] LABS: BACTERIA,URINE TRACE /HPF; RBC,URINE 0-2 /HPF; WBC,URINE 25-50 /HPF
--- NOTE | 2018-12-04 18:01 | ED Abdominal Pain ---
General Stated Complaint: L SIDE PAIN History of Present Illness Date Seen by Provider: Dec 04, 2018 Time Seen by Provider: 17:40 Initial Comments 33-year-old female presents for left flank and back pain since 0400 this morning. She reports a history of spleen enlargement and kidney stones in the past. She also had lab work done in [place] at [facility] and was told she had elevated liver enzymes from 6 weeks ago and had a new lab draw this week but has not been given the results. She reports taking 400 mg of ibuprofen at 10:00 this morning with no relief in her symptoms. She reports mild nausea but no vomiting or diarrhea. She reports polyuria no dysuria or hematuria noted. Timing/Duration: 12 Hours Severity/Quality: Moderate Location: LUQ, Flank Radiation: No Radiation Associated Symptoms: Back Pain; No Chest Pain, No Diaphoresis, No Fever/Chills , No Headache, No Heartburn; Nausea/Vomiting Allergies and Home Medications Allergies Coded Allergies: No Known Drug Allergies (Unverified , 12/04/18) Home Medications Nitrofurantoin Macrocrystal 100 Mg Capsule, 100 MG PO Q6H Prescribed by: GARTH BARILLAS on 12/04/181902 Ondansetron HCl 8 Mg Tablet, 8 MG PO Q6H PRN for NAUSEA/VOMITING-1ST LINE Prescribed by: GARTH BARILLAS on 12/04/181902 Patient Home Medication List Home Medication List Reviewed: Yes Review of Systems Review of Systems Constitutional: no symptoms reported, see HPI Gastrointestinal: See HPI, Abdominal Pain, Nausea Musculoskeletal: see HPI, back pain Skin: see HPI; No change in color, No pruritus, No rash All Other Systems Reviewed Negative Unless Noted: Yes Past Vmsbndc-Rviidc-Ifkhjx Hx Past Med/Social Hx: Reviewed Nursing Past Med/Soc Hx, Reviewed and Corrections made Patient Social History Alcohol Use: Rarely Uses Recreational Drug Use: Yes Drug of Choice: meth Type Used: Cigarettes 2nd Hand Smoke Exposure: Yes Recent Foreign Travel: No Contact w/Someone Who Travel: No Recent Hopitalizations: No Seasonal Allergies Seasonal Allergies: No Past Medical History Surgeries: Yes Section, Thyroidectomy, Tonsillectomy Respiratory: No Cardiac: No Neurological: No Genitourinary: No Gastrointestinal: No Musculoskeletal: No Endocrine: No HEENT: No Cancer: No Psychosocial: No Integumentary: No Blood Disorders: No Physical Exam Vital Signs Vital Signs - First Documented 12/04/18 18:02 Temp 98.2 Pulse 102 Resp 18 B/P (MAP) 118/77 (91) Pulse Ox 100 Capillary Refill : Height/Weight/BMI Height: 5'3.00" Weight: 115lbs. oz. 52.040978lp; BMI Method:Stated General Appearance: WD/WN, no apparent distress, thin HEENT: PERRL/EOMI, normal ENT inspection, TMs normal, pharynx normal Neck: non-tender, full range of motion, supple, normal inspection Respiratory: chest non-tender, lungs clear, normal breath sounds, no respiratory distress Cardiovascular: normal peripheral pulses, regular rate, rhythm, no edema, no murmur Gastrointestinal: normal bowel sounds, soft; No distended, No rebound; tenderness (left upper quadrant); No mass, No spleenomegaly (unable to adequately assess secondary to pain) Neurologic/Psychiatric: no motor/sensory deficits, alert, normal mood/affect, oriented x 3 Skin: normal color; No jaundice Lymphatic: no adenopathy Progress/Results/Core Measures Results/Orders Lab Results Laboratory Tests Test 12/04/18 17:35 12/04/18 17:43 Range/Units Urine Color YELLOW Urine Clarity CLEAR Urine pH 8 5-9 Urine Specific Emma 1.015 L 1.016-1.022 Urine Protein 1+ H NEGATIVE Urine Glucose (UA) NEGATIVE NEGATIVE Urine Ketones NEGATIVE NEGATIVE Urine Nitrite NEGATIVE NEGATIVE Urine Bilirubin NEGATIVE NEGATIVE Urine Urobilinogen NORMAL NORMAL MG/DL Urine Leukocyte Esterase 1+ H NEGATIVE Urine RBC (Auto) 1+ H NEGATIVE Urine RBC 0-2 /HPF Urine WBC 25-50 H /HPF Urine Squamous Epithelial Cells 5-10 /HPF Urine Crystals NONE /LPF Urine Bacteria TRACE /HPF Urine Casts NONE /LPF Urine Mucus NEGATIVE /LPF Urine Culture Indicated YES Urine Test POSITIVE NEGATIVE Urine Opiates Screen NEGATIVE NEGATIVE Urine Oxycodone Screen NEGATIVE NEGATIVE Urine Methadone Screen NEGATIVE NEGATIVE Urine Propoxyphene Screen NEGATIVE NEGATIVE Urine Barbiturates Screen NEGATIVE NEGATIVE Ur Tricyclic Antidepressants Screen NEGATIVE NEGATIVE Urine Phencyclidine Screen NEGATIVE NEGATIVE Urine Amphetamines Screen POSITIVE H NEGATIVE Urine Methamphetamines Screen POSITIVE H NEGATIVE Urine Benzodiazepines Screen NEGATIVE NEGATIVE Urine Cocaine Screen NEGATIVE NEGATIVE Urine Cannabinoids Screen NEGATIVE NEGATIVE White Blood Count 9.4 4.3-11.0 10^3/uL Red Blood Count 4.35 4.35-5.85 10^6/uL Hemoglobin 13.6 11.5-16.0 G/DL Hematocrit 40 35-52 % Mean Corpuscular Volume 92 80-99 FL Mean Corpuscular Hemoglobin 31 25-34 PG Mean Corpuscular Hemoglobin Concent 34 32-36 G/DL Red Cell Distribution Width 12.8 10.0-14.5 % Platelet Count 235 130-400 10^3/uL Mean Platelet Volume 9.7 7.4-10.4 FL Neutrophils (%) (Auto) 76 H 42-75 % Lymphocytes (%) (Auto) 16 12-44 % Monocytes (%) (Auto) 8 0-12 % Eosinophils (%) (Auto) 1 0-10 % Basophils (%) (Auto) 0 0-10 % Neutrophils # (Auto) 7.1 1.8-7.8 X 10^3 Lymphocytes # (Auto) 1.5 1.0-4.0 X 10^3 Monocytes # (Auto) 0.8 0.0-1.0 X 10^3 Eosinophils # (Auto) 0.1 0.0-0.3 10^3/uL Basophils # (Auto) 0.0 0.0-0.1 10^3/uL Sodium Level 137 135-145 MMOL/L Potassium Level 3.8 3.6-5.0 MMOL/L Chloride Level 104 98-107 MMOL/L Carbon Dioxide Level 25 21-32 MMOL/L Anion Gap 8 5-14 MMOL/L Blood Urea Nitrogen 9 7-18 MG/DL Creatinine 0.74 0.60-1.30 MG/DL Estimat Glomerular Filtration Rate > 60 BUN/Creatinine Ratio 12 Glucose Level 78 70-105 MG/DL Calcium Level 8.9 8.5-10.1 MG/DL Corrected Calcium 8.7 8.5-10.1 MG/DL Total Bilirubin 0.3 0.1-1.0 MG/DL Aspartate Amino Transf (AST/SGOT) 10 5-34 U/L Alanine Aminotransferase (ALT/SGPT) 14 0-55 U/L Alkaline Phosphatase 74 40-136 U/L Total Protein 6.8 6.4-8.2 GM/DL Albumin 4.3 3.2-4.5 GM/DL Amylase Level 43 25-125 U/L Lipase 33 8-78 U/L Human Chorionic Gonadotropin, Quant 3332 H <5 MIU/ML Serum Alcohol < 10 <10 MG/DL My Orders Orders - GARTH BARILLAS ROSA M Ua Culture If Indicated (12/04/18 17:31) Alcohol (12/04/18 17:44) Amylase (12/04/18 17:44) Cbc With Automated Diff (12/04/18 17:44) Comprehensive Metabolic Panel (12/04/18 17:44) Drug Screen Stat (Urine) (12/04/18 17:44) Lipase (12/04/18 17:44) Urine Bedside (12/04/18 17:44) Saline Lock/Iv-Start (12/04/18 17:44) Ns Iv 1000 Ml (Sodium Chloride 0.9%) (12/04/18 17:44) Ondansetron Injection (Zofran Injectio (12/04/18 17:45) Ketorolac Injection (Toradol Injection) (12/04/18 17:44) Hcg,Qualitative Urine (12/04/18 17:51) Urine Culture (12/04/18 17:35) Hcg,Quantitative (12/04/18 18:41) Rx-Nitrofurantoin [place] (Rx-Macrobid) (12/04/18 18:45) Medications Given in ED Current Medications Medications Dose Ordered Sig/Robert Route Start Time Stop Time Status Last Admin Dose Admin Ondansetron HCl 4 mg ONCE ONCE IVP 12/04/18 17:45 12/04/18 17:46 DC 12/04/18 17:53 4 MG Vital Signs/I&O 12/04/18 12/04/18 18:02 19:18 Temp 98.2 Pulse 102 73 Resp 18 16 B/P (MAP) 118/77 (91) 118/63 (81) Pulse Ox 100 99 Progress Progress Note : Time: 17:40 Progress Note Patient seen and evaluated, recommended labs, normal saline 1 L IV and Toradol 30 mg IV. 1830 discussed lab results with patient and significant other. LMP 11/03/18, approx due date 11/09/19. Patient questioned about positive methamphetamine on urine drug screen, she does report using this approximately 2 days ago. She states that she has only used it once a month over the last year, she used it for approximately 5 years ago, quit two years ago. We do not have ultrasound services available at this facility. Discussed this with the patient and her significant other, recommended that an ultrasound is completed because she is at risk for an ectopic . While I do find that it is unlikely, as her pain is left upper quadrant and flank. It is probably related to the UTI. However I cannot be confirmatory on this and an ultrasound is warranted. Spoke to Dr. Rivas at [facility], they have ultrasound services available but not on outpatient basis. She will have to check into the emergency department. She is otherwise hemodynamically stable and can be transported by her significant other. Her pain has improved since taking the Toradol and her nausea has improved since the Zofran. Will give her first dose of nitrofurantoin for the UTI. 1850 Quant HCG 3332 1900Discharge instructions and return precautions reviewed with the patient. All questions answered. Departure Impression Primary Impression: UTI (urinary tract infection) Qualified Codes: N39.0 - Urinary tract infection, site not specified; R31.9 - Hematuria, unspecified Additional Impressions: First trimester Methamphetamine abuse, episodic Disposition: 01 HOME, SELF-CARE Condition: Improved Departure-Patient Inst. Decision time for Depature: 18:45 Referrals: NO,LOCAL PHYSICIAN (PCP/Family) Primary Care Physician Patient Instructions: Acute Abdomen (Belly Pain), Adult (DC), Alcohol and Illegal Drug Use in , Urinary Tract Infection, Adult (DC) Add. Discharge Instructions: Take your antibiotics as prescribed. Discontinue use of methamphetamines. You may take Zofran every 6-8 hours as needed for nausea. You may take Tylenol 650 mg every 6 hours for pain. You can be evaluated at [facility] Emergency Dept and an Ultrasound can be performed for risk of ectopic . Again taking a vitamin, one tablet every day. Increase her water intake, one bottle every 2 hours while awake. Drink 1 glass of cranberry juice or eat 1 cup of fresh blueberries daily Empty her bladder every 1-2 hours while awake. Establish care with an ECHO VASC TECH. Return to emergency department if abdominal pain increases, vaginal discharge or bleeding, fever greater than 101 not relieved by Tylenol, or new complaints. Scripts Ondansetron HCl (Zofran) 8 Mg Tablet 8 MG PO Q6H PRN for NAUSEA/VOMITING-1ST LINE, #12 TAB 0 Refills Prov: GARTH BARILLAS 12/04/18 Nitrofurantoin Macrocrystal (Nitrofurantoin) 100 Mg Capsule 100 MG PO Q6H for 5 Days, #20 CAP 0 Refills Prov: GARTH BARILLAS 12/04/18 GARTH BARILLAS Dec 04, 2018 18:01
[2018-12-04 18:06] LABS: AMPHETAMINE SCREEN, URINE POSITIVE (NEGATIVE); BARBITURATE SCREEN URINE NEGATIVE (NEGATIVE); BENZODIAZEPINES SCREEN URINE NEGATIVE (NEGATIVE); CANNABINOID SCREEN, URINE NEGATIVE (NEGATIVE); COCAINE SCREEN URINE NEGATIVE (NEGATIVE); METHADONE STAT NEGATIVE (NEGATIVE); METHAMPHETAMINE SCREEN URINE S POSITIVE (NEGATIVE); OPIATE SCREEN URINE NEGATIVE (NEGATIVE); OXYCODONE STAT NEGATIVE (NEGATIVE); PROPOXYPHENE STAT NEGATIVE (NEGATIVE); TRICYCLIC ANTIDEPRESSANTS SCRE NEGATIVE (NEGATIVE)
[2018-12-04 18:14] LABS: ALANINE AMINOTRANSFERASE 14 U/L (0-55); ALBUMIN 4.3 GM/DL (3.2-4.5); ALKALINE PHOSPHATASE 74 U/L (40-136); AMYLASE 43 U/L (25-125); BILIRUBIN,TOTAL 0.3 MG/DL (0.1-1.0); BUN/CREATININE RATIO 12; CALCIUM 8.9 MG/DL (8.5-10.1); CARBON DIOXIDE 25 MMOL/L (21-32); CHLORIDE 104 MMOL/L (98-107); CREATININE SERUM 0.74 MG/DL (0.60-1.30); GFR ESTIMATED > 60; GLUCOSE 78 MG/DL (70-105); LIPASE 33 U/L (8-78); POTASSIUM 3.8 MMOL/L (3.6-5.0); SODIUM 137 MMOL/L (135-145); TOTAL PROTEIN 6.8 GM/DL (6.4-8.2)
[2018-12-04] MEDS ORDERED: RX-NITROFURANTOIN 100 MG (MACROBID) CAP PPK#2 PO STA (18:45)
[2018-12-04] MEDS ORDERED: ONDA8TAB6 PO (19:03)
[2018-12-04] MEDS ORDERED: NITR100C PO (19:03)
[2018-12-04 19:18] VITALS: BP 118/63
== END 2018-12-04 19:17 | disposition home or self-care (01) ==
LOC: EDUNIT# 17:25 → ER 17:26
DX: O23.40 Unspecified infection of urinary tract in pregnancy, unspecified trimester (principal); O99.320 Drug use complicating pregnancy, unspecified trimester; F15.10 Other stimulant abuse, uncomplicated; Z98.890 Other specified postprocedural states; Z90.89 Acquired absence of other organs; Z3A.00 Weeks of gestation of pregnancy not specified
CPT/HCPCS: 36415; 80053; 80306; 80320; 81000; 82150; 83690; 84702; 84703; 85025; 87077; 87088; 87186

== ENCOUNTER 2019-07-02 10:59 | Outpatient (CLI) | payer MEDICAID ==
[~2019-07-02] VITALS: Ht 160 cm; Wt 65.5 kg
[~2019-07-02 10:59] MED LIST: NITR100C PO; ONDA8TAB6 PO
[2019-07-02] MEDS ORDERED: RANI-514 PO (11:15)
[2019-07-02] MEDS ORDERED: LEVO125T6 PO (11:15)
[2019-07-02] MEDS ORDERED: PREN-48 PO (11:15)
[2019-07-02] MEDS ORDERED: FERR-84 PO (11:17)
[2019-07-02 11:20] VITALS: BP 113/76
== END 2019-07-02 12:04 ==
LOC: PREOP 10:59
PROVIDERS: ATTEND Obstetrics & Gynecology
DX: Z01.818 Encounter for other preprocedural examination (principal); Z72.0 Tobacco use
CPT/HCPCS: 87081

== ENCOUNTER 2019-07-09 07:54 | Inpatient (IN) | payer MEDICAID ==
[~2019-07-09] VITALS: Ht 160 cm; Wt 64.9 kg
[2019-07-09] VITALS (10 sets, daily range): BP systolic 95–119; BP diastolic 49–75
[~2019-07-09 07:54] MED LIST changes: +FERR-84 PO; +LEVO125T6 PO; +PREN-48 PO; +RANI-514 PO
--- NOTE | 2019-07-09 07:55 | NUR ---
EFRAÍN RAIN presented to unit via ambulation, accompanied by friend, for repeat c/s. Pt. weighed, gowned, voided, and to bed. EFHM and TOCO applied, VS taken. Pt. oriented to bed controls, call light, TV, heat, and A/C controls.
--- NOTE | 2019-07-09 08:00 | NUR ---
admission paperwork completed. POC reviewed.
[2019-07-09] MEDS ORDERED: METOCLOPRAMIDE INJ 10 MG/2 ML (REGLAN) ONE (08:03)
[2019-07-09] MEDS ORDERED: CITRIC ACID/SOB CIT (BICITRA) 30 ML UDC ONE (08:03)
[2019-07-09] MEDS ORDERED: FAMOTIDINE 20MG/2ML IV (PEPCID) ONE (08:03)
--- NOTE | 2019-07-09 08:03 | NUR ---
#20g to Lt.FA x1 attempt by this RN. site patent, secured with Mapbar. admission labs collected from site prior to IVF's infusing. pt tolerated well.
[2019-07-09] MEDS ORDERED: WATER (STERILE) FOR INJECTION 10 ML ONE (08:10)
[2019-07-09] MEDS ORDERED: ceFAZolin INJECTION 1,000 MG ONE (08:10)
[2019-07-09] MEDS ORDERED: ceFAZolin INJECTION 1,000 MG in WATER (STERILE) FOR INJECTION 10 ML IV ONE (08:15)
[2019-07-09 08:20] LABS: BASOPHILS % (AUTO) 0 % (0-10); EOSINOPHILS # (AUTO) 0.1 10^3/uL (0.0-0.3); EOSINOPHILS % (AUTO) 1 % (0-10); HEMATOCRIT 33 % (35-52); HEMOGLOBIN 10.8 G/DL (11.5-16.0); LYMPHOCYTES # (AUTO) 1.7 X 10^3 (1.0-4.0); LYMPHOCYTES % (AUTO) 17 % (12-44); MEAN CORPUSCULAR HEMOGLOBIN 30 PG (25-34); MEAN CORPUSCULAR HGB CONC 33 G/DL (32-36); MEAN CORPUSCULAR VOLUME 90 FL (80-99); MEAN PLATELET VOLUME 10.5 FL (7.4-10.4); MONOCYTES # (AUTO) 0.7 X 10^3 (0.0-1.0); MONOCYTES % (AUTO) 7 % (0-12); NEUTROPHILS # (AUTO) 7.4 X 10^3 (1.8-7.8); NEUTROPHILS % (AUTO) 75 % (42-75); PLATELET COUNT 198 10^3/uL (130-400); RED CELL DISTRIBUTION WIDTH 13.4 % (10.0-14.5); WHITE BLOOD COUNT 9.9 10^3/uL (4.3-11.0)
[2019-07-09] MEDS: LACTATED RINGERS 1,000 ML IV SCH ×2 (08:25→08:42)
--- NOTE | 2019-07-09 08:43 | History & Physical-OB ---
OB - Chief Complaint & HPI Date/Time Date of Admission: Date of Admission: Jul 09, 2019 at 07:54 Date seen by a Provider: Jul 09, 2019 Time Seen by a Provider: 08:30 Chief Complaint/History Hx : 4 Hx Para: 3 Expected Date of Delivery: Jul 16, 2019 Gestational Age in Weeks: 39 Indication for : desires repeat Admission Nurse Assessment Rev: Yes History of Labs O pos Antibody neg RI RPR NR HBsAg NR HIV NR GC neg GBS unknown Allergies and Home Medications Allergies Coded Allergies: Latex, Natural Rubber (Verified Allergy, Mild, RASH, 07/02/19) Iodinated Contrast- Oral and IV Dye (Verified Allergy, Unknown, 07/02/19) Home Medications Ferrous Sulfate 325 Mg Tablet, 325 MG PO DAILY, (Reported) Levothyroxine Sodium 125 Mcg Tablet, 125 MCG PO DAILY, (Reported) Ondansetron HCl 8 Mg Tablet, 8 MG PO Q6H PRN for NAUSEA/VOMITING-1ST LINE Prescribed by: GARTH BARILLAS on 12/04/18 190 Vit No.78/Iron/FA 1 Each Tablet, 1 EACH PO DAILY, (Reported) Ranitidine HCl 75 Mg Tablet, 75 MG PO BID, (Reported) Patient Home Medication List Home Medication List Reviewed: Yes OB - History Hx of Present Care: Yes Ultrasounds: Other (Late care and transfer of care from ) Obstetrical Complications: None Medical Complications: Other (Hx of Ilicit drug use) Delivery History Adverse Rxn to Tranfusion: No (N/A) Patient Past Medical History Hx of Ilicit drug Social History/Family History HIV/AIDS: No Sexually Transmitted Disease: No Alcohol Use: Denies Use Recreational Drug Use: No (pt denies use or hx) 2nd Hand Smoke Exposure: Yes OB - Admission Exam Physical Exam HEENT: NCAT Heart: Rhythm Normal Abdomen: Gravid Extremities: Normal Reflexes: Normal Membranes: Intact Heart Rate: 130's Accelerations: Accelerations Present Decelerations: No Decelerations Short Term Variability: Present Retirement Variability: Average (6-25) Labs Laboratory Tests Test 07/09/19 08:03 Range/Units White Blood Count 9.9 4.3-11.0 10^3/uL Red Blood Count 3.61 L 4.35-5.85 10^6/uL Hemoglobin 10.8 L 11.5-16.0 G/DL Hematocrit 33 L 35-52 % Mean Corpuscular Volume 90 80-99 FL Mean Corpuscular Hemoglobin 30 25-34 PG Mean Corpuscular Hemoglobin Concent 33 32-36 G/DL Red Cell Distribution Width 13.4 10.0-14.5 % Platelet Count 198 130-400 10^3/uL Mean Platelet Volume 10.5 H 7.4-10.4 FL Neutrophils (%) (Auto) 75 42-75 % Lymphocytes (%) (Auto) 17 12-44 % Monocytes (%) (Auto) 7 0-12 % Eosinophils (%) (Auto) 1 0-10 % Basophils (%) (Auto) 0 0-10 % Neutrophils # (Auto) 7.4 1.8-7.8 X 10^3 Lymphocytes # (Auto) 1.7 1.0-4.0 X 10^3 Monocytes # (Auto) 0.7 0.0-1.0 X 10^3 Eosinophils # (Auto) 0.1 0.0-0.3 10^3/uL Basophils # (Auto) 0.0 0.0-0.1 10^3/uL OB - Assessment/Plan/Diagnosis Assessment Assessment: section Admission Dx 33 yo @ 39 weeks Previous Hx of illicit drug use Late transfer of care Admission Status: Inpatient Order (span 2 midnights) Reason for Inpatient Admission: Repeat Plan Plan: Section SANDY AMES DO Jul 09, 2019 08:43
[2019-07-09] MEDS ORDERED: ONDANSETRON 4 MG/2 ML (SDV) Z0FRAN IVP PRN ×2 (08:45→11:30)
[2019-07-09] MEDS ORDERED: MEASLES,MUMPS,RUBELLA 1 EA INJ SC SCH (08:45)
[2019-07-09] MEDS ORDERED: TETANUS,DIPTH,PERTUSS P/F (BOOSTRIX) 0.5 ML VIAL IM SCH (08:45)
[2019-07-09] MEDS ORDERED: HYDR-4226 PO (08:50)
[2019-07-09] MEDS ORDERED: DOCU-143 PO (08:50)
[2019-07-09] MEDS ORDERED: IBUP-1773 PO (08:50)
--- NOTE | 2019-07-09 08:50 | Discharge Inst-Women's Service ---
Discharge Inst-Women's Serv Depart Medication/Instructions New, Converted or Re-Newed RX: RX on Chart Problems Reviewed?: Yes Consults/Follow Up Additional Follow Up: Yes Orders/Referrals Dr. Ames in 7-10 days and in 6 weeks Activity Activity: Activity as Tolerated Driving Instructions: No Driving for 1 Week NO SMOKING: NO SMOKING Nothing Inside Vagina: No Douching, No [place], No Tampons Diet Discharge Diet: No Restrictions Symptoms to Report to : Bleeding Excessive, Pain Increased, Fever Over 101 Degrees F, Vaginal Bleeding Increase, Questions/Concerns SANDY AMES DO Jul 09, 2019 08:50
[2019-07-09] MEDS ORDERED: DOCUSATE SODIUM 100 MG (COLACE) CAP PO SCH (09:00)
[2019-07-09 09:04] LABS: AMPHETAMINE SCREEN, URINE NEGATIVE (NEGATIVE); BARBITURATE SCREEN URINE NEGATIVE (NEGATIVE); BENZODIAZEPINES SCREEN URINE NEGATIVE (NEGATIVE); CANNABINOID SCREEN, URINE NEGATIVE (NEGATIVE); COCAINE SCREEN URINE NEGATIVE (NEGATIVE); METHADONE STAT NEGATIVE (NEGATIVE); METHAMPHETAMINE SCREEN URINE S NEGATIVE (NEGATIVE); OPIATE SCREEN URINE NEGATIVE (NEGATIVE); OXYCODONE STAT NEGATIVE (NEGATIVE); PROPOXYPHENE STAT NEGATIVE (NEGATIVE); TRICYCLIC ANTIDEPRESSANTS SCRE NEGATIVE (NEGATIVE)
[2019-07-09] MEDS ORDERED: OXYTOCIN/NORMAL SALINE 1,000 ML IV ONE (09:26)
--- NOTE | 2019-07-09 09:26 | NUR ---
RELAY SHOP TESTER @ bedside.
[2019-07-09] MEDS ORDERED: fentaNYL INJECTION 100 MCG/2 ML AMP ONE (09:27)
--- NOTE | 2019-07-09 09:40 | NUR ---
monitors dc'd. pt ambulated to OB c/s room with OR staff @ side. pt stable with no sx's of distress noted.
[2019-07-09] MEDS ORDERED: PHENYLEPHRINE 100 MCG/ML 10 ML (ANESTHESIA) SYR ONE (09:59)
[2019-07-09] MEDS ORDERED: ROPIVACAINE 5MG/ML 30ML VIAL ONE (10:12)
[2019-07-09] MEDS ORDERED: HYDROmorphone 2 MG/ML VIAL (DILAUDID) IV ONE (11:30)
[2019-07-09] MEDS ORDERED: diphenhydrAMINE 50 MG/ML INJ (BENADRYL) ONE (11:33)
[2019-07-09] MEDS: KETOROLAC 30 MG/ML VIAL IV SCH ×2 (11:43→17:07)
[2019-07-09] MEDS ORDERED: METOCLOPRAMIDE 10 MG (REGLAN) TAB PO SCH (12:00)
[2019-07-09] MEDS ORDERED: NICOTINE 21 MG (NICODERM) PATCH TD SCH (12:09)
--- NOTE | 2019-07-09 12:20 | NUR ---
Pt transferred to room 307 with this RN @ side. call light within reach. familiarized with room surroundings.
[2019-07-09] MEDS: HYDROcodone/APAP 5 MG/325 MG (LORTAB) TAB PO PRN ×2 (13:08→19:04)
--- NOTE | 2019-07-09 13:40 | NUR ---
pt's friend, Jayda, out to nursing desk stating pt "bleeding and in pain." this RN, Linda, BLAINE and A.Back to room. FFu/1. no active vaginal bleeding noted. small vaginal bleeding noted in blue chux. pt c/o pain on Rt. side of abd. dressing torn down, small amount of bleeding noted on lower abd pad. margins marked. abd replaced.
--- NOTE | 2019-07-09 13:50 | NUR ---
was called. update given on pt's status r/t uncontrolled pain. order received for Dilaudid 1mg IV x1 dose. Addendum: 07/09/19 at 2132 by TIO BOLES RN informed that geno from PACU weighing 290cc total EBL. will cont to monitor.
--- NOTE | 2019-07-09 13:53 | NUR ---
pt into nursery via w/c with staff @ side. update given on Dilaudid order. states understanding.
[2019-07-09] MEDS ORDERED: CATHETER FLUSH 10 ML SYR IV SCH (14:00)
[2019-07-09] MEDS ORDERED: HYDROmorphone 2 MG/ML VIAL (DILAUDID) ONE (14:25)
--- NOTE | 2019-07-09 14:26 | NUR ---
pt returned to room 307 from nursery. 1435- IV Dilaudid given. Nicoderm patch applied to Rt.deltoid per request. pt and friend eating Stork meal.
--- NOTE | 2019-07-09 14:31 | NUR ---
CM/SS responded to consult for SS. MOB reports that she has all she needs for the baby ie) crib, car seat, clothes, diapers. She stated that she has WIC and My Family. She did report that lost her first baby 15yrs ago due to medical complications. She has two other living children that are living with her mother and are involved with [facility]. She states that she has unsupervised visits with them now. Her [facility] workers have done home visit on 07/08 and approved the home for the new baby per the patient's report. DCF intake # [id number].
--- NOTE | 2019-07-09 16:20 | OPERATIVE REPORT ---
DATE OF SERVICE: PREOPERATIVE DIAGNOSES: 1. A 33-year-old G4, P3 at 39 weeks gestation. 2. Limited care with late transfer of care. 3. History of illicit drug use. POSTOPERATIVE DIAGNOSES: 1. A 33-year-old G4, P3 at 39 weeks gestation. 2. Limited care with late transfer of care. 3. History of illicit drug use. PROCEDURE: Repeat low transverse section. SURGEON: Goldy Spencer DO FIELD TRAINER: Gabbie Hyde DNP. ANESTHESIA: Spinal. ESTIMATED BLOOD LOSS: 500 mL. URINE OUTPUT: 75 mL clear at the end of the procedure. FLUIDS: 1100 mL lactated Ringer's solution. FINDINGS: A live male infant with Apgars of 7 and 9, weight 6 pounds 14 ounces. Grossly normal appearing uterus, bilateral fallopian tubes and ovaries. INDICATIONS FOR PROCEDURE: This 33-year-old female is the patient who transferred to my care approximately 4 weeks ago telling me that she was 38 weeks gestation at that point; however, transfer records from gave mixed dating based upon first trimester scan and LMP scan. A recent ultrasound in our office revealed closer to due date of 07/17/2019 as well as amniotic fluid levels that were on the low end of normal. I made a decision at that point to do two indeterminate dating to proceed with delivery at 39 weeks based upon my dating, which would be today. I discussed with the patient's social media editor consult due to her history, which she was very forthcoming about and a history of methamphetamine use in the past. The patient was very agreeable to this and very cooperative. Procedure was scheduled for 39 weeks. Risks of the procedure were discussed with the patient in detail including risks of bleeding, infection, damage to surrounding structures including but not limited to bowel, bladder, ureter, kidneys, possible postoperative complications, possible need for reoperation, risk from anesthesia and even and possible need for blood transfusion. After everything was discussed with the patient in detail, consent was obtained in the preoperative area and the patient was taken to the operating room. OPERATIVE REPORT IN DETAIL: Once in the operating room, spinal analgesia was found to be adequate. She was placed in supine position with a leftward tilt, prepped and draped in normal sterile fashion. A Pfannenstiel skin incision was made through a previously existing scar using a knife and carried down to underlying fascia using Bovie cautery. The fascial incision extended laterally using Bovie cautery. Superior aspect of the fascial incision was then grasped with David clamps, tented up and dissected off the underlying rectus muscles. The inferior aspect of the fascial incision was then grasped with David clamps, tented up and dissected off the underlying rectus muscles. The rectus muscles were then dissected down the midline using Ely scissors, which exposed the peritoneum, which I entered bluntly and extended using blunt traction. An Bryan ring retractor was placed in the peritoneal incision, which offers excellent lateral sidewall retraction. I then identified the lower uterine segment, which was found to be grossly thinned out and make a low transverse incision into the vesicouterine peritoneum and bluntly dissected this off the lower uterine segment, creating a bladder flap. I then proceeded with my myotomy until membranes were visualized at which point I extended the uterine incision laterally and superiorly using bandage scissors. Amniotomy was then performed using an Allis clamp. Clear fluid was noted. The was found in vertex presentation. With gentle fundal pressure, the infant's head was elevated up the incision where the nares and oropharynx were bulb suctioned and nuchal cord was reduced x1. Anterior and posterior shoulders were delivered. was then brought to the operative field. The cord was doubly clamped and cut and was handed off to waiting nurses in attendance. Cord blood was collected. Three-vessel cord with intact placenta was delivered spontaneously thereafter. IV Pitocin was initiated to facilitate uterine contraction. Uterine fundus confirmed with bimanual massage. Uterus was then exteriorized and cleared of all endometrial clots and debris. I then proceeded with closing the uterine incision using 0 Vicryl suture in running locked fashion. Second layer of imbricating 0 Monocryl was placed. Excellent hemostasis was noted after doing this. I then placed the uterus back within the pelvis and copiously irrigated the pelvis using normal saline. Once again, there was no active bleeding noted from any of my dissection planes. I placed Interceed antiadhesive over my low transverse incision and proceeded with closing the peritoneum using 3-0 Vicryl suture in running fashion. The rectus muscle was reapproximated using 3-0 Vicryl suture in running fashion. The fascia was reapproximated using 0 Vicryl suture in running fashion. Subcutaneous tissue is thin; therefore did not reapproximate this. The skin was reapproximated using 4-0 Monocryl in a running subcuticular stitch. Dermabond was applied to incision. A sterile dressing was adhesed with white tape. The patient tolerated the procedure well and sent to recovery area in stable condition. Lap and sponge counts were correct at the end of the procedure. Instrument counts were correct as well. One gram of Ancef was given preoperatively for infection prophylaxis. Job ID: [id number] DocumentID: [id number] Dictated Date: 07/09/2019 11:42:52 Meat Lugger Date: 07/09/2019 16:19:12 Dictated By: DO ROSA ELENA MAJOR
--- NOTE | 2019-07-09 16:23 | NUR ---
pt ambulating in nursery with friend, Jayda, @ side. reports up to BR, voided without difficulty.
--- NOTE | 2019-07-09 16:50 | NUR ---
pt's friend, Avis, approached this RN @ nursing desk asking why DCF was to see pt. this RN informed friend that information would not be able to given to her, she would have to discuss with pt. "Oh, I asked her. they said the nurse was under suspension of us using."
--- NOTE | 2019-07-09 16:53 | NUR ---
pt in nursery @ warmer side. pt notified that friend, Jayda, was asking about DCF visit.
--- NOTE | 2019-07-09 16:55 | NUR ---
returned to room 307. holding lower abd, requesting pain medication. will reviewed medication administration schedule.
--- NOTE | 2019-07-09 17:07 | NUR ---
scheduled Toradol IV given, see eMar for further.
--- NOTE | 2019-07-09 19:00 | NUR ---
report given to BLAINE Mathis.
--- NOTE | 2019-07-09 19:31 | NUR ---
was called r/t pt's requesting dismissal r/t 's transfer to [facility]. orders received to keep till a.m. and repeat labs. made aware that pt will sign out AMA if necessary.
--- NOTE | 2019-07-09 19:36 | NUR ---
discuss 's POC with pt and family members. Dr. gupta in a.m. after repeat CBC. pt tearful, crying r/t transferred to [facility]. pt will sign AMA consent.
--- NOTE | 2019-07-09 19:44 | NUR ---
Uzair Juarez, and Jared Rx's given to pt. 1947- IV site dc'd. pt tearful, crying. "have you ever gotten a call that your child is dieing when your a couple of hours away? I'm not doing that again."
--- NOTE | 2019-07-09 19:48 | NUR ---
discussed pt staying till a.m. r/t not receiving dismissal order from . pt shaking head, wanting to leave with . crying. informed pt of leaving against medical advice and having to sign paper, willing to do so. AMA consent signed by pt and placed on chart. Addendum: 07/09/19 at 0 by TIO BOLES RN reviewed incision care with pt and friend, Jayda. instructed to leave abd bandage on till a.m.. reviewed medication administration schedule. Addendum: 07/09/19 at 221 by TIO BOLES RN instructed pt to follow up with @ 7-10 days for incision check appointment and [facility] for 6 week PP appointment. "I should of stayed @ [facility]"
[2019-07-10] MEDS ORDERED: NICOTINE PATCH REMOVAL TP SCH (08:59)
--- NOTE | 2019-07-10 10:02 | Anesthesia-Regional Post-Op ---
Regional Post Op Complications Complications None Follow Up Care/Instructions Patient Instructions None needed. Anesthesia/Patient Condition Unable to post op, nursing staff advised pt left SCOTTY PINEDA CRNA Jul 10, 2019 10:02
[2019-07-10] MEDS ORDERED: IBUPROFEN 600 MG (MOTRIN) TAB PO SCH (12:00)
--- NOTE | 2019-07-13 10:52 | Physician Query-Final Dx ---
Final Diagnosis Give Final Diagnosis Please give Final Diagnosis HEIDI YOUNGER Jul 13, 2019 10:52
== END 2019-07-09 19:48 | disposition left against medical advice (07) | DRG 788 ==
LOC: LDRP 07:54
PROVIDERS: ADMIT Obstetrics & Gynecology; ATTEND Obstetrics & Gynecology
PROC: 10D00Z1 Extraction of Products of Conception, Low, Open Approach (ICD-10-PCS; principal; 2019-07-09 09:50)
DX: O34.211 Maternal care for low transverse scar from previous cesarean delivery (principal); O09.33 Supervision of pregnancy with insufficient antenatal care, third trimester; O69.81X0 Labor and delivery complicated by cord around neck, without compression, not applicable or unspecified; Z3A.39 39 weeks gestation of pregnancy; Z37.0 Single live birth; Z91.041 Radiographic dye allergy status; Z91.040 Latex allergy status
CPT/HCPCS: 36415; 80306; 85025; 86850; 86900; 86901; 94664